=== PATIENT | female | born 1950 | race Caucasian/White ===

== ENCOUNTER → 2023-12-27 14:52 | Outpatient (REF) | payer MEDICARE, OTHER, SELFPAY | LOC: HWRAD 14:52 | PROVIDERS: ATTENDING PHYSICIAN Family Medicine | DX: Z12.31 Encounter for screening mammogram for malignant neoplasm of breast (principal); Z78.0 Asymptomatic menopausal state | CPT/HCPCS: 77063; 77067; 77080 ==

== ENCOUNTER 2024-02-07 15:48 | Emergency (ER) | payer MEDICARE, OTHER, SELFPAY ==
[2024-02-07 15:56] VITALS: BP 140/89
--- NOTE | 2024-02-07 18:19 | ED.SKININJ ---
HPI-Injury
General
Chief Complaint: Skin Surface Trauma
Source: patient
Time Seen by Provider: 02/07/24 17:30
History of Present Illness-Injury
Initial Injury comments:
73yoF with a history of atrial fibrillation on aspirin presenting for evaluation of a left toe laceration that was sustained about 1 hour prior to arrival. Patient was using a chain saw and accidentally cut herself causing a laceration at the left
5th toe. No bleeding on arrival. She denies any paresthesias. She reports that her Tdap is up to date.
Phy Exam
Physical Exam
Physical Exam:
Left 5th toe: Approx 2cm avulsion noted to the proximal toe with central gaping. No active bleeding. No visualized tendon or bone. ROM of toe intact. Cap refill and sensation at distal digit.
Course
Orders/Labs/Results
Orders:
Orders
02/07/24 15:57
Toes 2 Views, Left CR [CR Toe(s) Min 2 Vw Left] Urgent
Comment:
Reason For Exam: lac to 5th toe from chainsaw
Indicate Which Toe:: Fifth
Vital Signs
Initial and Last Documented VS:
Initial Vital Signs
Temp Pulse Resp BP Pulse Ox
98.0 F 75 16 140/89 98
02/07/24 15:56 02/07/24 15:56 02/07/24 15:56 02/07/24 15:56 02/07/24 15:56
Last Documented Vital Signs
Temp Pulse Resp BP Pulse Ox
98.0 F 75 16 140/89 98
02/07/24 15:56 02/07/24 15:56 02/07/24 15:56 02/07/24 15:56 02/07/24 15:56
Procedures
Laceration Closure
Left Toe:
Status of Wound: clean
Size of Wound in cm: 2
Description of Wound Edges: ragged
Preparation: cleaned with saline (Irrigated with 1L NSS) and cleaned with Betadine
Anesthesia: 1% Lidocaine
Wound exploration: extensive cleaning of contaminated wound and explored to base- no FB
Type of Closure: single layer closure and interrupted sutures
Skin Closure Material: 3-0 nylon
Number of sutures: 3
Additional information:
Wound unable to completely approximated due to gaping/avulsion. Three 3-0 nylon sutures placed for retention.
MDM/Problems Addressed
Differential Diagnosis Includes:
73yoF here with a L little toe laceration after a chain saw injury. A gaping laceration/avulsion noted on exam. Digit is neurovascularly intact. Wound was irrigated with 1L NSS. No exposed tendon or bone noted. X-rays obtained which are negative for
fracture per my interpretation. Wound repaired as above. She tolerated well without any immediate complications. She was started on Keflex for infection prophylaxis due to the depth of the wound. Wound dressed and surgical shoe given by nursing
staff. Home wound care discussed. Advised f/u with PCP for wound recheck and suture removal in 14 days. Advised return to the ED with any signs of infection. Patient discharged in stable condition.
*Critical Care Note
Total Time (30-74mins, 75-104mins- exclusive of procedures): Not Applicable
ED Attending Note
-
Portions of this chart may have been created with voice recognition software.� Occasional wrong word or��sound alike� substitutions may have occurred due to the inherent limitations of voice recognition software.
Discharge Plan
Departure
Patient Disposition: Home (Routine Discharge)
Date of Disposition: 02/07/24
Time of Disposition: 18:20
Patient with high blood pressure during this ER visit?: No
Discharge Problem:
Laceration of toe of left foot
Instructions: Laceration Repair With Stitches (DC)
Prescriptions:
New
cephalexin 500 mg capsule
500 mg PO QID Qty: 28 0RF
No Action
calcium carbonate 500 MG tablet
500 mg PO DAILY
cholecalciferol (vitamin D3) 2,000 UNITS tablet
2,000 units PO DAILY
diltiazem HCl 240 MG capsule,extended release 24hr
240 mg PO DAILY
rivaroxaban [Xarelto] 20 MG tablet
20 mg PO DAILY
cephalexin 500 MG capsule
500 mg PO BID
Patient Comments:
Recent eye infection - will be stopped 02/09/21.
magnesium 200 MG tablet
200 mg PO DAILY
Activity Restrictions/Additional Instructions:
Take antibiotics as prescribed. Keep wound clean and dry and change dressings daily. The sutures will need to be removed in 14 days.
Please follow-up with your family doctor for wound recheck. Return to the ER with any signs of infection.
Interventions
Interventions:
*Risk Screen - Suicide Last Done: 02/07/24 18:48
*General Assessment Last Done: 02/07/24 18:02
*Neglect/Abuse Screening Last Done: 02/07/24 18:02
ED- Fall Risk Assessment Last Done: 02/07/24 18:48
*ED COVID-19 Vaccine History Last Done: 02/07/24 18:48
*Nursing Disposition Last Done: 02/07/24 18:48
ED-Skin Assessment Last Done: 02/07/24 18:02
Discharge Date and Time
Discharge Date/Time: 02/07/24 18:48
Print Language: MOROCCAN
== END 2024-02-07 18:48 | disposition home or self-care (01) ==
LOC: EMR 15:48
PROVIDERS: EMERGENCY PHYSICIAN Emergency Medicine; FAMILY PHYSICIAN Family Medicine
DX: S91.115A Laceration without foreign body of left lesser toe(s) without damage to nail, initial encounter (principal); W29.3XXA Contact with powered garden and outdoor hand tools and machinery, initial encounter
CPT/HCPCS: 99284; 12041; 73660

== ENCOUNTER → 2025-02-05 15:20 | Outpatient (REF) | payer MEDICARE, OTHER, SELFPAY | LOC: WDC 15:20 | PROVIDERS: ATTENDING PHYSICIAN Family Medicine | DX: Z12.31 Encounter for screening mammogram for malignant neoplasm of breast (principal) | CPT/HCPCS: 77063; 77067 ==